=== PATIENT | male | born 1990 | race African-American/Black ===

== ENCOUNTER 2016-07-17 12:18 | Emergency (ER) | payer OTHER ==
--- NOTE | 2016-07-17 13:13 | XRay Report ---
LEFT ANKLE, 3 views: History: Injury, pain, swelling. Bone mineralization is normal. No acute osseous injury or joint pathology is detected. There is severe nonspecific soft tissue swelling. IMPRESSION: Soft tissue swelling.
[2016-07-17] MEDS ORDERED: ZOFRAN ODT PO ONE (15:30)
[2016-07-17] MEDS ORDERED: NORCO 5/325 PO ONE (15:30)
--- NOTE | 2016-07-17 16:10 | Emergency Department Report ---
ED Extremity Problem HPI - General Chief complaint: Extremity Injury, Lower Stated complaint: LEFT ANKLE INJURY Time Seen by Provider: 07/17/16 15:19 Source: patient Mode of arrival: Wheelchair Limitations: No Limitations - History of Present Illness Initial comments: PT c/o L ankle injury yesterday. PT states he twisted his ankle playing basketball. PT states he tried ice, elevation and Tumeric but no improvement in swelling or pain today. PT denies any previous injury to L ankle. PT denies any other injuries from yesterday. MD Complaint: joint paint Onset/Timin -: Sudden, days(s) Location: left, other (ankle ) History of Same: No Severity scale (0 -10): 6 Quality: constant Consistency: constant Improves with: rest Worsens with: weight bearing, walking, palpation Associated Symptoms: denies other symptoms - Related Data Previous Rx's Medication Instructions Recorded Last Taken Type Acetaminophen/Codeine [Tylenol #3] 1 tab PO Q6H PRN #12 tab 07/17/16 Unknown Rx Ibuprofen [Motrin] 600 mg PO Q8H PRN #15 tablet 07/17/16 Unknown Rx Allergies Allergy/AdvReac Type Severity Reaction Status Date / Time No Known Allergies Allergy Unverified 07/17/16 12:23 ED Review of Systems ROS: Stated complaint: LEFT ANKLE INJURY Other details as noted in HPI Comment: All other systems reviewed and negative Constitutional: denies: fever Cardiovascular: denies: chest pain Musculoskeletal: as per HPI Neurological: denies: headache ED Past Medical Hx - Past Medical History Previous Medical History?: No - Surgical History Hx Appendectomy: Yes - Social History Smoking Status: Never Smoker Substance Use Type: None - Medications Home Medications: Home Medications Medication Instructions Recorded Confirmed Last Taken Type Acetaminophen/Codeine [Tylenol #3] 1 tab PO Q6H PRN #12 tab 07/17/16 Unknown Rx Ibuprofen [Motrin] 600 mg PO Q8H PRN #15 tablet 07/17/16 Unknown Rx ED Physical Exam - General Limitations: No Limitations - Head Head exam: Present: atraumatic, normocephalic - Eye Eye exam: Present: normal appearance, EOMI. Absent: conjunctival injection - ENT ENT exam: Present: normal exam, normal external ear exam - Neck Neck exam: Present: normal inspection, full ROM - Respiratory Respiratory exam: Absent: respiratory distress, accessory muscle use - Cardiovascular Cardiovascular Exam: Present: regular rate, normal rhythm - Rectal Rectal exam: Present: deferred - Expanded Lower Extremity Exam Left Knee exam: Present: normal inspection. Absent: tenderness Lower Leg exam: Present: normal inspection. Absent: tenderness Ankle exam: Present: tenderness (L lateral malleolus ), swelling. Absent: full ROM (decreased rom ), ecchymosis Foot/Toe exam: Present: normal inspection, subungual hematoma (PT states that was from playing soccer, denies pain hematoma less than 50%). Absent: tenderness at base of 5th metatarsal Neuro vascular tendon exam: Present: no vascular compromise. Absent: abnormal cap refill - Back Exam Back exam: Present: normal inspection, full ROM - Neurological Exam Neurological exam: Present: alert, oriented X3 - Psychiatric Psychiatric exam: Present: normal affect, normal mood - Skin Skin exam: Present: warm, dry, intact ED Course Vital Signs 07/17/16 07/17/16 12:22 15:48 Temperature 97.8 F Pulse Rate 61 Respiratory 17 16 Rate Blood Pressure 124/68 O2 Sat by Pulse 100 Oximetry - Reevaluation(s) Reevaluation #1: 07/17/16 16:13 PT aware no fx seen on XR. PT aware of dx and plan of care. PT has no questions at this time. Reevaluation #2: 07/17/16 17:34 RN applied norman wrap and velcro splint. PT NVI. - Pulse Oximetry Interpretation Digit-Finger Initial Pulse Oximetry Readin Actions Taken: none ED Medical Decision Making - Radiology Data Radiology results: report reviewed, image reviewed L ankle- no fx, soft tissue swelling - Differential Diagnosis fx, contusion, sprain Critical care attestation.: If time is entered above; I have spent that time in minutes in the direct care of this critically ill patient, excluding procedure time. ED Disposition Clinical Impression: Left ankle pain Qualifiers: Chronicity: acute Qualified Code(s): M25.572 - Pain in left ankle and joints of left foot Left ankle sprain Qualifiers: Encounter type: initial encounter Involved ligament of ankle: unspecified ligament Qualified Code(s): S93.402A - Sprain of unspecified ligament of left ankle, initial encounter Disposition: DISCHARGED TO HOME OR SELFCARE Is pt being admited?: No Does the pt Need Aspirin: No Condition: Stable Instructions: Ankle Sprain (ED), Crutch Instructions (ED), RICE Therapy (ED) Additional Instructions: No driving or ETOH after taking Tylenol #3 Do not take Tumeric with Motrin Prescriptions: Acetaminophen/Codeine [Tylenol #3] 1 tab PO Q6H PRN #12 tab PRN Reason: Pain , Severe (7-10) Ibuprofen [Motrin] 600 mg PO Q8H PRN #15 tablet PRN Reason: Pain Referrals: PRIMARY CAREMD [Primary Care Provider] - 3-5 Days CHICHI COMBS MD [Staff Physician] - 3-5 Days Time of Disposition: 16:15
[2016-07-17 17:45] VITALS: BP 130/72
== END 2016-07-17 17:45 | disposition home or self-care (01) ==
LOC: ED 12:18
DX: S93.402A Sprain of unspecified ligament of left ankle, initial encounter (principal); X37.1XXA Tornado, initial encounter; Y93.67 Activity, basketball; Y99.9 Unspecified external cause status; Y92.89 Other specified places as the place of occurrence of the external cause
CPT/HCPCS: Q0162